=== PATIENT | male | born 1990 | race African-American/Black ===

== ENCOUNTER 2016-12-22 19:54 | Emergency (ER) | payer SELFPAY ==
--- NOTE | 2016-12-22 21:05 | ERRECORD ---
[facility] EMERGENCY RECORD HPI GENERAL (20:38 JPIP) CHIEF COMPLAINT: Patient presents for evaluation of Pruritus, Patient states his son was diagnosed with scabies. He has been itching for several days. HISTORIAN: History provided by patient. MECHANISM OF INJURY: Known mechanism, Mechanism of injury: scabies exposure. LOCATION: Symptoms are generalized. TIME COURSE: Sudden onset of symptoms, Date and time of onset was 1-2, weeks ago, There has been no change in the patient's symptoms over time, are constant. ASSOCIATED WITH: No associated symptoms. EXACERBATED BY: Patient's condition exacerbated by scratching. RELIEVED BY: Patient's condition relieved by nothing. ROS (20:40 JPIP) CONSTITUTIONAL: Historian denies fever. SKIN: Historian denies rash, denies skin changes, denies skin lesions. NOTES: All systems reviewed, negative except as described above. PAST MEDICAL HISTORY MEDICAL HISTORY: No past medical history, No past medical history, Flu vaccine up to date, Tetanus immunization up to date, Pneumococcal vaccine up to date. (20:26 CHOB) Notes: Eczema. (20:41 JPIP) MALE SURGICAL HISTORY: LEFT ANKLE SX WITH METAL PLATES INSERTED 2007. H/O RIGHT HAND SX. REVIEWED 12/22/2016. (20:26 CHOB) PSYCHIATRIC HISTORY: Notes: NO PREVIOUS PSYCH HX. REVIEWED 12/22/2016. (20:26 CHOB) SOCIAL HISTORY: Patient drinks socially, Voices past marijuana use, Patient currently uses tobacco, smokes cigarettes 1/4 pk/day REVIEWED 12/22/2016. (20:26 CHOB) FAMILY HISTORY: Family istory is not significant, No known family hisotry. (20:26 CHOB) NOTES: Nursing records reviewed, Medication list reviewed. (20:41 JPIP) KNOWN ALLERGIES NKA CURRENT MEDICATIONS (20:57 CHOB) None VITAL SIGNS (20:10 CHOB) VITAL SIGNS: BP: 147/81, Pulse: 58 (Regular), Resp: 18 (Non-Labored), Temp: 98.0 (Oral), Pain: 0, O2 sat: 98 on Room Air, &a-1R&a+25V*p+0X*t0713U*c202B*c15G*c2P*p-0X&a-25V&a+1R Name: Jae Thurman DOB: 1990 M26 [id number] [id number] Prepared: Leela Dec 22, 2016 20:57 by Interface Page 1 of 3 pMD [facility] EMERGENCY RECORD Time: 12/22/2016 20:10. PHYSICAL EXAM (20:40 JPIP) CONSTITUTIONAL: Vital signs reviewed, Patient afebrile, Pulse normal, Blood pressure normal, Respiratory rate normal, Patient appears non toxic, Patient appears pain free, Patient alert and oriented to person, place and time. HEAD: Head exam included findings of head atraumatic, normocephalic. EYES: Eye exam included findings of eyelids normal to inspection, Conjunctiva normal, Sclera normal, no periorbital ecchymosis, no periorbital edema, no periorbital erythema. RESPIRATORY CHEST: Respiratory exam included findings of no respiratory distress. UPPER EXTREMITY: Upper extremity exam included findings of inspection normal, Range of motion normal. LOWER EXTREMITY: Lower extremity exam included findings of inspection normal, Range of motion normal. NEURO: [place] coma scale 15, no focal motor deficits. SKIN: Skin exam included findings of skin warm, dry, and normal in color, no rash, patient has no erythematous lesions, no trails, no DC, he does have dry skin and has excoriation german with dermatographia. PSYCHIATRIC: Psychiatric exam included findings of patient oriented to person place and time, Normal affect. MEDICATION ADMINISTRATION SUMMARY Drug Name: Atarax, Dose Ordered: 25 mg, Route: Oral, Status: Given, Time: 20:35 12/22/2016, Detailed record available in Medication Service section. PROBLEM LIST No recorded problems DIAGNOSIS (20:30 JPIP) FINAL: PRIMARY: SCABIES. PRESCRIPTION Atarax: TABLET : 25 mg : ORAL : Quantity: 1 Unit: tab(s) Route: ORAL Schedule: 1 to 2 times a day Dispense: 20 May substitute. Refills: No Refills . (20:25 JPIP) NOTES: as needed for itching No refills. (20:25 JPIP) permethrin: CREAM (GRAM) : 5 % : TOPICAL : Quantity: * Unit: elin Route: TOPICAL Schedule: See Notes Dispense: 60 gms May substitute. Refills: No Refills . (20:29 JPIP) NOTES: at bed time, apply from the neck down to your feet, leave on overnight and shower off in the morning No refills. (20:29 JPIP) &a-1R&a+25V*p+0X*[id number]*c202B*c15G*c2P*p-0X&a-25V&a+1R Name: Cuca Aje : 1990 [facility] [place] MedRec: [id number] AcctNum: [id number] Prepared: MonDec 22, 2016 20:57 by Interface Page 2 of 3 pMD [facility] EMERGENCY RECORD DISPOSITION PATIENT: Disposition Type: Discharge, Disposition: *Discharge Home, Condition: Good. (20:30 JPIP) Patient left the department. (20:49 CHOB) Payne: ELISA=OSEI Hernandez Christina JPIP=DO Morgan Joseph &a-1R&a+25V*p+0X*k0264D*c202B*c15G*c2P*p-0X&a-25V&a+1R Name: Jae Thurman DOB: 1990 [facility] [place] MedRec: [id number] AcctNum: [id number] Prepared: MonDec 22, 2016 20:57 by Interface Page 3 of 3 pMD MTDD
--- NOTE | 2016-12-22 21:11 | PICIS ---
[facility] EMERGENCY RECORD TRIAGE (MonDec 22, 2016 20:13 CHOB) TRIAGE NOTES: PT 1 Y/O SON VISITED LAST WEEK AND WAS DX WITH SCABIES. PT STATES HIS BACK,BILAT ARMS AND LEGS HAVE BEEN ITCHING AND HE WANTS TO BE CHECKED FOR SCABIES. (MonDec 22, 2016 20:13 CHOB) PATIENT: NAME: Jae Thurman, AGE: 26, GENDER: male, : Mon1990, TIME OF GREET: MonDec 22, 2016 19:54, PREFERRED LANGUAGE: Tamazight, ETHNICITY: Not or , ECODE BILLING MAP: [facility], SSN: [id number], Zip Code: [address], KG WEIGHT: 88.45 (est.), PHONE: , , , PERSON ID: [id number], PAYMENT: SJX Self Pay, PCP: NONE. (MonDec 22, 2016 20:13 CHOB) COMPLAINT: ITCHING/RASH. (MonDec 22, 2016 20:13 CHOB) ADMISSION: URGENCY: 5 Fast Track, ADMISSION SOURCE: Home, TRANSPORT: CAR, BED: ER -01. (MonDec 22, 2016 20:13 CHOB) ASSESSMENT: Assessment: PT SKIN DRY, WARM, NO RASH NOTED. RED SOSA TO PT TORSO/ABDOMEN NOTED FROM PT CONFIRMED ITCHING, NO INSECT BITES PRESENT. NO DISTRESS NOTED., Symptoms began 12/21/2016 20:26. (20:26 CHOB) PAIN: No complaint of pain. (20:26 CHOB) IMMUNIZATIONS: Flu vaccine not up to date, Tetanus not up to date, Pneumococcal vaccine not up to date. (20:26 CHOB) SIRS SCORING: Heart Rate 55-109 (0), Temp range 96.8-101.1 (0), respiratory rate 12-24 (0), Mental Status altered: no (0), Infection or Suspected Infection: No. (20:26 CHOB) TRIAGE SCREENING: Patient denies suicidal ideation, Patient denies presence of domestic violence. (20:26 CHOB) PROVIDERS: TRIAGE NURSE: Ariana Hernandez RN. (MonDec 22, 2016 20:13 CHOB) VITAL SIGNS: BP 147/81, Pulse 58, (Regular), Resp 18, (Non-Labored), Temp 98.0, (Oral), Pain 0, O2 Sat 98, on Room Air, Time 12/22/2016 20:10. (20:10 CHOB) PREVIOUS VISIT ALLERGIES: NKA. (MonDec 22, 2016 20:13 CHOB) NKA. (20:26 CHOB) KNOWN ALLERGIES NKA CURRENT MEDICATIONS (20:57 CHOB) None VITAL SIGNS VITAL SIGNS: BP: 147/81, Pulse: 58 (Regular), Resp: 18 (Non-Labored), Temp: 98.0 (Oral), Pain: 0, O2 sat: 98 on Room Air, Time: 12/22/2016 20:10. (20:10 CHOB) BP: 142/68, Pulse: 60, Resp: 18, Temp: 97.6, Pain: 0, O2 sat: 97 on RA, Time: 12/22/2016 20:40. (20:40 CHOB) NURSING ASSESSMENT: SKIN (20:13 CHOB) &a-1R&a+25V*p+0X*z9128U*c202B*c15G*c2P*p-0X&a-25V&a+1R Name: Jae Thurman : 1990 M26 MedRec: [id number] AcctNum: [id number] Prepared: MonDec 22, 2016 21:05 by Interface Page 1 of 5 pMD [facility] EMERGENCY RECORD CONSTITUTIONAL: Complex assessment performed, Patient arrives ambulatory, Gait steady, History obtained from patient, Patient appears comfortable, Patient cooperative, Patient alert, Oriented to person, place and time, Skin warm, Skin dry, Skin normal in color, Mucous membranes pink, Mucous membranes moist, Patient is well-groomed, Patient complains of ITCHING. PAIN: DENIES PAIN. SKIN: Skin assessment findings include skin warm, Skin dry, Skin normal in color, Inspection findings include redness, to TORSO,THIGHS R/T ITCHING. SAFETY: Side rails up, Cart/Stretcher in lowest position, Family at bedside, Call light within reach, Hospital ID band on. NURSING PROCEDURE: DISCHARGE NOTE (20:40 CHOB) DISCHARGE: Patient discharged to home, ambulating without assistance, driving self, accompanied by //partner, Patient requested and was provided an electronic copy of Discharge Instructions, Discharge instructions given to patient, Simple or moderate discharge teaching performed, by OSEI CHAVEZ, Prescriptions given and instructions on side effects given, Name of prescription(s) given: PERMETHRIN,ATARAX, Above person(s) verbalized understanding of discharge instructions and follow-up care, Notes: PT EDUCATED ON PERMETHERIN USE/APPLICATION AND EDUCATED ON HOME TREATMENT FOR SCABIES WITH VERBAL UNDERSTANDING. BELONGINGS: Belongings and valuables with patient at time of discharge include:, Belongings remain with patient. SAFETY: Side rails up, Cart/Stretcher in lowest position, Call light within reach, Hospital ID band on. VITAL SIGNS: BP: 142, / 68, Pulse: 60, Resp: 18, Temp: 97.6, Pain: 0, O2 sat: 97, on: RA. MEDICATION ADMINISTRATION SUMMARY Drug Name: Atarax, Dose Ordered: 25 mg, Route: Oral, Status: Given, Time: 20:35 12/22/2016, Detailed record available in Medication Service section. MEDICATION SERVICE (20:35 [facility]) Atarax: Order: Atarax (hydroxyzine HCl) - Dose: 25 mg : Oral Schedule: Now Ordered by: Armando Morgan DO Entered by: Armando Morgan DO [facility] Dec 22, 2016 20:24 , Acknowledged by: Ariana Hernandez RN [facility] Dec 22, 2016 20:26 Documented as given by: Ariana Hernandez RN [facility] Dec 22, 2016 20:35 Patient, Medication, Dose, Route and Time verified prior to administration. Amount given: 25MG, Site: Medication administered P.O., Correct patient, time, route, dose and medication confirmed prior to administration, Patient advised of actions and side-effects prior to &a-1R&a+25V*p+0X*g0934Y*c202B*c15G*c2P*p-0X&a-25V&a+1R Name: Jae Thurman : 1990 M26 MedRec: [id number] AcctNum: [id number] Prepared: MonDec 22, 2016 21:05 by Interface Page 2 of 5 pMD [facility] EMERGENCY RECORD administration, Allergies confirmed and medications reviewed prior to administration, Patient in position of comfort, Side rails up, Cart in lowest position, Call light in reach. HPI GENERAL (20:38 JPIP) CHIEF COMPLAINT: Patient presents for evaluation of Pruritus, Patient states his son was diagnosed with scabies. He has been itching for several days. HISTORIAN: History provided by patient. MECHANISM OF INJURY: Known mechanism, Mechanism of injury: scabies exposure. LOCATION: Symptoms are generalized. TIME COURSE: Sudden onset of symptoms, Date and time of onset was 1-2, weeks ago, There has been no change in the patient's symptoms over time, are constant. ASSOCIATED WITH: No associated symptoms. EXACERBATED BY: Patient's condition exacerbated by scratching. RELIEVED BY: Patient's condition relieved by nothing. ROS (20:40 JPIP) CONSTITUTIONAL: Historian denies fever. SKIN: Historian denies rash, denies skin changes, denies skin lesions. NOTES: All systems reviewed, negative except as described above. PAST MEDICAL HISTORY MEDICAL HISTORY: No past medical history, No past medical history, Flu vaccine up to date, Tetanus immunization up to date, Pneumococcal vaccine up to date. (20:26 CHOB) Notes: Eczema. (20:41 JPIP) MALE SURGICAL HISTORY: LEFT ANKLE SX WITH METAL PLATES INSERTED 2007. H/O RIGHT HAND SX. REVIEWED 12/22/2016. (20:26 CHOB) PSYCHIATRIC HISTORY: Notes: NO PREVIOUS PSYCH HX. REVIEWED 12/22/2016. (20:26 CHOB) SOCIAL HISTORY: Patient drinks socially, Voices past marijuana use, Patient currently uses tobacco, smokes cigarettes 1/4 pk/day REVIEWED 12/22/2016. (20:26 CHOB) FAMILY HISTORY: Family istory is not significant, No known family hisotry. (20:26 CHOB) NOTES: Nursing records reviewed, Medication list reviewed. (20:41 JPIP) PHYSICAL EXAM (20:40 JPIP) CONSTITUTIONAL: Vital signs reviewed, Patient afebrile, Pulse normal, Blood pressure normal, Respiratory rate normal, Patient appears non toxic, Patient appears pain free, Patient alert and oriented to person, place and time. &a-1R&a+25V*p+0X*j8894R*c202B*c15G*c2P*p-0X&a-25V&a+1R Name: Jae Thurman : 1990 M26 MedRec: [id number] AcctNum: [id number] Prepared: MonDec 22, 2016 21:05 by Interface Page 3 of 5 pMD [facility] EMERGENCY RECORD HEAD: Head exam included findings of head atraumatic, normocephalic. EYES: Eye exam included findings of eyelids normal to inspection, Conjunctiva normal, Sclera normal, no periorbital ecchymosis, no periorbital edema, no periorbital erythema. RESPIRATORY CHEST: Respiratory exam included findings of no respiratory distress. UPPER EXTREMITY: Upper extremity exam included findings of inspection normal, Range of motion normal. LOWER EXTREMITY: Lower extremity exam included findings of inspection normal, Range of motion normal. NEURO: [place] coma scale 15, no focal motor deficits. SKIN: Skin exam included findings of skin warm, dry, and normal in color, no rash, patient has no erythematous lesions, no trails, no DC, he does have dry skin and has excoriation sosa with dermatographia. PSYCHIATRIC: Psychiatric exam included findings of patient oriented to person place and time, Normal affect. EVENTS TRANSFER: Triage to Emergency Emergency Room -01. (Leela Dec 22, 2016 20:13 CHOB) Removed from Emergency Emergency Room -01. (20:49 CHOB) O2SAT INTERPRETATION (20:42 JPIP) O2SAT: Single pulse oximetry, Oxygen saturation 98%, on room air, Oxygen saturation interpretation: Normal, No intervention required. PROBLEM LIST No recorded problems DIAGNOSIS (20:30 JPIP) FINAL: PRIMARY: SCABIES. DISPOSITION PATIENT: Disposition Type: Discharge, Disposition: *Discharge Home, Condition: Good. (20:30 JPIP) Patient left the department. (20:49 CHOB) INSTRUCTION (20:30 JPIP) DISCHARGE: SCABIES. SPECIAL: Follow up with Primary Care Physician within 72 hours Return to the Emergency Department for increased symptoms problems or concerns. PRESCRIPTION Atarax: TABLET : 25 mg : ORAL : Quantity: 1 Unit: tab(s) Route: ORAL Schedule: 1 to 2 times a day Dispense: 20 May substitute. Refills: No Refills . (20:25 JPIP) NOTES: as needed for itching &a-1R&a+25V*p+0X*x3129R*c202B*c15G*c2P*p-0X&a-25V&a+1R Name: Jae Thurman : 1990 6 MedRec: [id number] AcctNum: [id number] Prepared: MonDec 22, 2016 21:05 by Interface Page 4 of 5 pMD [facility] EMERGENCY RECORD No refills. (20:25 JPIP) permethrin: CREAM (GRAM) : 5 % : TOPICAL : Quantity: * Unit: elin Route: TOPICAL Schedule: See Notes Dispense: 60 gms May substitute. Refills: No Refills . (20:29 JPIP) NOTES: at bed time, apply from the neck down to your feet, leave on overnight and shower off in the morning No refills. (20:29 JPIP) Payne: ELISA=OSEI Hernandez Christina JPIP=DO [facility] Joseph &a-1R&a+25V*p+0X*e0709X*c202B*c15G*c2P*p-0X&a-25V&a+1R Name: Jae Thurman : 1990 [facility] [place] MedRec: [id number] AcctNum: [id number] Prepared: Leela Dec 22, 2016 21:05 by Interface Page 5 of 5 pMD MTDD
== END 2016-12-22 20:40 | disposition home or self-care (01) ==
LOC: BURERS 19:54
DX: B86 Scabies (principal); F17.210 Nicotine dependence, cigarettes, uncomplicated
CPT/HCPCS: 99282

== ENCOUNTER 2017-04-27 11:22 | Emergency (ER) | payer SELFPAY ==
[2017-04-28 22:23] LABS: Chlamydia by PCR DETECTED (NotDetected); GC by PCR DETECTED (NotDetected)
== END 2017-04-27 12:40 | disposition home or self-care (01) ==
LOC: BURERS 11:22
DX: N34.1 Nonspecific urethritis (principal); F17.210 Nicotine dependence, cigarettes, uncomplicated
CPT/HCPCS: 87491; 87591; 99283